=== PATIENT | female | born 1935 | race Caucasian/White ===

== ENCOUNTER 2016-05-15 18:30 | Observation (INO) ==
[2016-05-15] MEDS ORDERED: 0.9 % Sodium Chloride 1,000 ML IVC ONE (19:13)
[2016-05-15] MEDS ORDERED: Ipratropium/Albuterol Neb 3 ML IH ONE (19:13)
--- NOTE | 2016-05-15 19:17 | Emergency Department Note ---
Disposition Clinical Impression: Influenza, Pneumonia, Febrile illness Disposition: Admitted As Inpatient Condition: Good SOB HPI - General Chief Complaint: ED Shortness of Breath/Dyspnea Stated Complaint: SOB// coughing up blood Time Seen by Provider: 05/15/16 18:57 Source: patient, family Limitations: no limitations Nursing Notes Reviewed: Yes Vital Signs Reviewed: Yes - History of Present Illness 80-year-old female who states she is quite healthy except for a hiatal hernia presents to the emergency department with a chief complaint of 24 hours of cough with productive yellow sputum. She reports subjective fevers at home. She reports a history of pneumonia in the past but has been recently been well. She had her pneumonia shot a few years ago and she had her flu vaccine this year. She complains of some crampiness down her neck and into her shoulders. She denies any stiffness of the neck. She is fully immunized. She complains of mild headache. Denies any photophobia, nausea or vomiting. Denies any abdominal pain. Denies any chest pain. She has had a decreased appetite over the last day. - Related Data Home Medications Medication Instructions Recorded Confirmed Levothyroxine [Synthroid] 112 mcg PO DAILY 04/12/16 05/15/16 Naproxen Sodium [Aleve] 220 mg PO Q12H PRN 04/12/16 05/15/16 Amoxicillin [Amoxil] 500 mg PO BID 05/15/16 05/15/16 Omeprazole [PriLOSEC] 20 mg PO DAILY 05/15/16 05/15/16 Allergies Allergy/AdvReac Type Severity Reaction Status Date / Time No Known Allergies Allergy Verified 04/12/16 09:21 All systems ED: reviewed and negative except as stated. Constitutional: Reports: fever, chills Cardiovascular: Denies: chest pain Respiratory: Reports: cough, dyspnea Gastrointestinal: Denies: abdominal pain, nausea, vomiting Musculoskeletal: Denies: joint swelling Integumentary: Denies: rash Neurological: Reports: headache. Denies: weakness, numbness Past Medical History - Past Medical History Medical history: Reports: arthritis, thyroid disease, TIA, other Surgical history: Reports: orthopedic, other, thyroidectomy, other Psychiatric history: Reports: no psych history - Social History Smoking Status: Never smoker Smokeless Tobacco Status: No Alcohol use: Reports: none Drug use: Reports: none Physical Exam General: Patient is a well-appearing female, resting in bed, she is alert and oriented 3 and talkative Cardiovascular: Regular rate and rhythm. S1, S2. No murmurs, rubs or gallops. Respiratory: Coarse breath sounds especially in the left lobe with end expiratory wheezing. Coughing on examination bring up thick yellow sputum. No respiratory distress dressed. Normal respiratory rate. Abdomen: Soft, nontender. Eyes: No conjunctival exudate or injection, conjunctiva clear HENT: No oral mucosal lesions. Moist mucous membranes Neuro: Alert and oriented 3 Musculoskeletal: No joint tenderness or swelling. No lower extremity swelling, no calf tenderness. Skin: No lesions. No diaphoresis. Normal turgor. Normal color Psych: Appropriate - General Limitations: no limitations General appearance: alert, in no apparent distress Course Course Narrative: Elderly female presents with cough and dyspnea. In the room she is coughing up thick yellow sputum. She has a fever at 100.9. At rest she is 90% on room air requiring supplemental oxygen. No history of lung disease or need for oxygen. She is influenza A positive. She was started on Tamiflu because her symptoms have been less than 24 hours. Patient is elderly and lives at home with her elderly . She is so generally weak she cannot even get up out of bed to use the restroom. She is requiring supplemental oxygen and clinically with the fever, thick sputum she may have a developing pneumonia. She was also started on antibiotics to cover for community-acquired infections. Plan to admit to the hospital for further management. Vital Signs Temperature 100.9 F H 05/15/16 18:32 Pulse Rate 96 05/15/16 18:32 Respiratory Rate 18 05/15/16 18:32 Blood Pressure 170/87 05/15/16 18:32 O2 Sat by Pulse Oximetry 95 05/15/16 18:32 Temperature 100.9 F H 05/15/16 18:32 Pulse Rate 96 05/15/16 18:32 Respiratory Rate 20 05/15/16 19:46 Blood Pressure 170/87 05/15/16 18:32 O2 Sat by Pulse Oximetry 96 05/15/16 19:46 Oxygen Delivery Oxygen Delivery Room Air Shortness of Breath/Dyspnea - Lab Data Result diagrams: 05/15/16 19:21 05/15/16 19:21 Lab Results 05/15/16 05/15/16 Range/Units 19:21 19:21 WBC 5.0 (4.3-11.1) K/mcL RBC 4.21 (3.82-4.97) M/mcL Hgb 12.8 (11.5-15.4) g/dL Hct 38.3 (35.3-44.9) % MCV 91.0 (83.0-100.0) fL MCH 30.4 (28.0-33.3) pg MCHC 33.4 (31.6-35.5) g/dL RDW 13.1 (11.5-14.5) % Plt Count 166 (140-400) K/mcL MPV 10.7 (9.4-12.4) fL Immature Gran % 0.4 (0-4) % Seg Neutrophils % 75.6 % Lymphocytes % 12.1 % Monocytes % 10.9 % Eosinophils % 0.4 % Basophils % 0.6 % Neutrophils # 3.8 (1.6-8.9) K/mcL Lymphocytes # 0.6 (0.6-4.6) K/mcL Monocytes # 0.5 (0.0-1.3) K/mcL Eosinophils # 0.0 (0.0-0.6) K/mcL Basophils # 0.0 (0.0-0.2) K/mcL Sodium 135 L (136-145) mEq/L Potassium 3.7 (3.5-4.5) mEq/L Chloride 101 (98-109) mEq/L Carbon Dioxide 24 (19-29) mEq/L BUN 10 (7-20) mg/dL Creatinine 0.74 (0.57-1.11) mg/dL Est GFR ( Amer) > 60 (> 60) Est GFR (Non-Af Amer) > 60 (> 60) BUN/Creatinine Ratio 14 (6-26) Glucose 104 H (70-99) mg/dL Calculated Osmolality 279 L (280-300) Calcium 8.7 (8.6-10.8) mg/dL - EKG Data EKG results narrative: EKG shows a sinus rhythm with a rate of 82 bpm. The EKG reads as atrial fibrillation but after "examination in comparison to previous it looks like she has a P wave with a first-degree heart block. She has a right bundle branch block which is old compared to 03/22/2016. Mild ST depression in the lateral leads.
--- NOTE | 2016-05-15 19:26 | Emergency Department Note ---
START Narrative - START START: I examined this patient and my medical decision-making was reviewed with the POSTING CLERK/PA/Advanced Practice Nurse/Resident Physician. I agree with the documented findings, disposition and treatment plan as described except to the extent set forth below. ED attending note: Patient seen with emergency medicine resident Dr Cano. We independently evaluated the patient. We independently had [id number] contact with the patient. Please see a copy of his note for details of the history and physical, evaluation, management and disposition of this emergency Department patient. Briefly: 80-year-old female nonsmoker several days of cough and mild shortness of breath and fever. She is febrile here with some rhonchi. Cough sputum up during the exam which was yellow. Patient had x-ray and lab tests. Clinical impression is pneumonia. Disposition pending. Patient stable.
[2016-05-15 19:37] LABS: Basophils % 0.6 %; Eosinophils % 0.4 %; Hematocrit 38.3 % (35.3-44.9); Hemoglobin 12.8 g/dL (11.5-15.4); Immature Granulocytes % 0.4 % (0-4); Lymphocytes # 0.6 K/mcL (0.6-4.6); Lymphocytes % 12.1 %; Mean Corpuscular HGB Conc 33.4 g/dL (31.6-35.5); Mean Corpuscular Hemoglobin 30.4 pg (28.0-33.3); Mean Platelet Volume 10.7 fL (9.4-12.4); Monocytes # 0.5 K/mcL (0.0-1.3); Monocytes % 10.9 %; Neutrophils # 3.8 K/mcL (1.6-8.9); Platelet Count 166 K/mcL (140-400); Red Blood Count 4.21 M/mcL (3.82-4.97); Red Cell Distribution Width 13.1 % (11.5-14.5); Segmented Neutrophils % 75.6 %
[2016-05-15 19:38] LABS: BUN/Creatinine Ratio 14 (6-26); Blood Urea Nitrogen 10 mg/dL (7-20); Calcium 8.7 mg/dL (8.6-10.8); Carbon Dioxide 24 mEq/L (19-29); Chloride 101 mEq/L (98-109); Glucose 104 mg/dL (70-99); Osmolality,Calculated 279 (280-300); Potassium 3.7 mEq/L (3.5-4.5); Sodium 135 mEq/L (136-145); eGFR For African Americans > 60 (> 60); eGFR For Non-African Americans > 60 (> 60)
[2016-05-15] MEDS ORDERED: levoFLOXacin 500 MG TABLET PO ONE (20:22)
[2016-05-15] MEDS ORDERED: Ketorolac 30 MG/ML VIAL IVP ONE (20:46)
[2016-05-15] MEDS ORDERED: Ketorolac 30 MG/ML VIAL IVP PRN (23:28)
[2016-05-15] MEDS ORDERED: *HR* HYDROcodone/Acet 5/325 mg TABLET PO PRN (23:28)
[2016-05-15] MEDS ORDERED: Ondansetron ODT 4 MG TAB.RAPDIS SL PRN (23:28)
[2016-05-15] MEDS ORDERED: Naloxone 0.4 MG/ML INJ IVP PRN (23:28)
[2016-05-15] MEDS ORDERED: Ipratropium/Albuterol Neb 3 ML IH PRN (23:31)
--- NOTE | 2016-05-15 23:42 | Internal Med History&Physical ---
<Kym Vasquez - Last Filed: 05/16/16 00:01> Date of Encounter: 05/16/16 Time of Encounter: 23:33 Assessment and Plan (1) Influenza A Current visit: Yes Status: Acute Patient reports classic flu symptoms starting less than 48 hours ago. Will treat with tamiful and supportive care. 1. Tamiful 75mg PO BID x 5 days 2. Monitor O2 saturation. Supplemental O2 as needed 3. Fluids - normal saline at 100mls/hr 4. Medications of nausea/vomiting, body aches 5. Tylenol for elevated temperatures (2) Pneumonia Current visit: Yes Status: Acute CXR showed no acute infiltrate however patient has temperature, yellow/green/ bloody sputum with decreased air movement on exam. Concern for possible pneumonia is high. Patient has no recent hospitalization or exposure. Will treat for for community acquired pneumonia and provide supportive care. 1. Levaquin 750mg PO QD 2. Duonebs every 4 hours as needed 3. Sputum culture 4. Supplemental oxygen as needed Qualifiers: Pneumonia type: due to unspecified organism Laterality: unspecified laterality Lung location: unspecified part of lung Qualified Code(s): J18.9 - Pneumonia, unspecified organism (3) DVT prophylaxis Current visit: Yes Status: Acute Heparin 5,000 Q8H and SCD for DVT prophylaxis. Internal Medicine - H&P: HPI Admitted From: Emergency Dept Plans for Post Hospital Care: Home History of present illness: Ms. 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 Patient reports that 2 days ago she developed a sore throat. She called her family doctor and was given a prescription for amoxicillin. Then for the last day she has had a cough productive of yellow and blood tinged sputum. Patient reports chest pain with coughing and feeling short of breath. She reports feeling very weak and unable to get out of bed today. She reports associated chills, headache, nausea, constipation and diffuse joint and body aches. She denies changes in vision, runny nose, nasal congestion, abdominal pain, vomiting, diarrhea, or change in bladder function. Patient reports that her grandson has been sick. She received a pneumonia shot a few years ago and got her flu shot this year. In the ED, patient was found to have a temperature of 100.9 F, HR 70s-90s. Respiratory rate appropriate with O2 saturation 90% on room air. Labs were largely within normal limits. Found to be Influenza A positive. CXR showed low lung volumes but no acute process. She was given a dose of tamiflu and levaquin. On exam, patient is awake and alert, answer questions appropriately. Throat is not erythematous and no excudates are noted. Heart is regular rate and rhythm. Lungs with diminished breath sounds on the right and coughing on exam - no wheezing or rhonchi. Abdomen soft, nontender. No pedal edema. Past Med Surg Social Fam HX - Past Medical History Medical history: arthritis, thyroid disease, TIA, other Psychiatric history: no psych history - Past Surgical History Surgical History: orthopedic, other, thyroidectomy, other - Social History Smoking Status: Never smoker Smokeless Tobacco Status: No Alcohol use: none Drug use: none - Family History Father Age at : 45 Hx Family GI Disorders: Yes Mother Hx Family Respiratory Disorders: Yes (Emphysema) Internal Medicine - H&P: Meds Levothyroxine [Synthroid] 112 mcg PO DAILY 04/12/16 [History] Naproxen Sodium [Aleve] 220 mg PO Q12H PRN 04/12/16 [History] Amoxicillin [Amoxil] 500 mg PO BID 05/15/16 [History] Omeprazole [PriLOSEC] 20 mg PO DAILY 05/15/16 [History] Allergies No Known Allergies Allergy (Verified 04/12/16 09:21) All Systems PM: A 10-system review of systems was performed and is negative for pertinent findings except as documented above in the HPI. - Constitutional Constitutional: chills, fatigue, fever(s), lethargy, weakness - EENT Eyes: no change in vision Ears: no decreased hearing, no ear pain Nose, mouth and throat: neck pain, sore throat, no nasal congestion, no nasal discharge, no post-nasal drip, no sinus pain, no sinus pressure - Cardiovascular Cardiovascular ROS IM: dyspnea, no chest pain, no edema, no irregular heart rhythm, no palpitations - Respiratory Respiratory: cough, dyspnea, dyspnea on exertion, chest congestion, pain with cough - Gastrointestinal Gastrointestinal: constipation, nausea, no abdominal pain, no diarrhea, no vomiting - Genitourinary Genitourinary: no change in urinary stream, no dysuria - Musculoskeletal Musculoskeletal ROS IM: myalgias - Neurological Neurological ROS: headache(s), no confusion, no dizziness - Constitutional Vitals: Temp Pulse Resp BP Pulse Ox 99.1 F 74 16 124/68 97 05/15/16 22:49 05/15/16 22:49 05/15/16 22:49 05/15/16 22:49 05/15/16 22:49 General appearance: Present: A&O X 3, pleasant, no acute distress, answers questions appropriately - Head Head exam: Present: atraumatic, normal inspection, normocephalic - Eye Eye exam: Present: EOMI, normal appearance, PERRL - ENT ENT exam: Present: mucous membranes moist, normal exam - Respiratory Respiratory exam: Present: decreased breath sounds. Absent: rales, rhonchi, wheezes - Cardiovascular Cardiovascular exam: Present: RRR - GI/Abdominal GI/Abdominal exam: Present: soft. Absent: guarding, rebound, rigid, tenderness - Extremities Exam Extremities exam: Present: normal inspection. Absent: pedal edema - Neurological Exam Neurological exam: Present: alert, CN II-XII intact, oriented X3 Internal Med - H&P Results - Labs CBC & Chem 7: 05/15/16 19:21 05/15/16 19:21 <Davon Hammonds - Last Filed: 05/16/16 02:21> Date of Encounter: 05/15/16 Internal Medicine - H&P: HPI History of present illness: Ms. Corrales is a 80 year old female All Systems PM: A 10-system review of systems was performed and is negative for pertinent findings except as documented above in the HPI. - Constitutional Vitals: Temp Pulse Resp BP Pulse Ox 99.1 F 74 16 124/68 97 05/15/16 22:49 05/15/16 22:49 05/15/16 22:49 05/15/16 22:49 05/15/16 22:49 Internal Med - H&P Results - Labs CBC & Chem 7: 05/15/16 19:21 05/15/16 19:21 - Attending Attestation I examined this patient and my medical decision-making was reviewed with the MOTION GRAPHICS DESIGNER/PA/Advanced Practice Nurse/Resident Physician. I agree with the documented findings, disposition and treatment plan as described except to the extent set forth below. 80 Y/F with hypothyroidism, presents with influenza A, cough with yellow sputum. Poor oral intake. O/E: Temp: 100.9F. Left basal crackles present. CXR reported no acute infiltrate. A/P: continue Tamiflu, levofloxacin. Sputum cultures; check CRP. IV fluids.
[2016-05-16] MEDS: 0.9 % Sodium Chloride 1,000 ML IVC SCH ×3 (01:19→20:26)
[2016-05-16 04:21] LABS: Hematocrit 34.4 % (35.3-44.9); Hemoglobin 11.5 g/dL (11.5-15.4); Mean Corpuscular HGB Conc 33.4 g/dL (31.6-35.5); Mean Corpuscular Hemoglobin 30.7 pg (28.0-33.3); Mean Corpuscular Volume 91.7 fL (83.0-100.0); Platelet Count 140 K/mcL (140-400); Red Blood Count 3.75 M/mcL (3.82-4.97); Red Cell Distribution Width 13.2 % (11.5-14.5)
[2016-05-16 04:37] LABS: BUN/Creatinine Ratio 15 (6-26); Blood Urea Nitrogen 11 mg/dL (7-20); Calcium 8.1 mg/dL (8.6-10.8); Carbon Dioxide 22 mEq/L (19-29); Chloride 106 mEq/L (98-109); Glucose 87 mg/dL (70-99); Magnesium 1.6 mg/dL (1.6-2.6); Osmolality,Calculated 283 (280-300); Phosphorous 4.1 mg/dL (2.3-4.7); Potassium 3.4 mEq/L (3.5-4.5); Sodium 137 mEq/L (136-145); eGFR For African Americans > 60 (> 60); eGFR For Non-African Americans > 60 (> 60)
[2016-05-16 04:55] LABS: Basophils # 0.1 K/mcL (0.0-0.2); Lymphocytes # 0.9 K/mcL (0.6-4.6); Monocytes # 0.1 K/mcL (0.0-1.3); Neutrophils # 2.5 K/mcL (1.6-8.9)
[2016-05-16 04:56] LABS: Large Platelets Present (Not Present); Platelet Estimate Normal (Normal); Reactive Lymphocytes Present (Not Present)
[2016-05-16] MEDS: *HR* Heparin 5,000 UNIT/ML VIAL SQ SCH ×3 (06:45→23:10)
[2016-05-16] MEDS ORDERED: *HR* Heparin 5,000 UNIT/ML VIAL SQ SCH (07:00)
[2016-05-16] MEDS: levoFLOXacin 500 MG TABLET PO SCH (08:36)
[2016-05-16] MEDS: Lactobacillus 1 EACH CAP.SPRINK PO SCH ×2 (08:36→20:26)
--- NOTE | 2016-05-16 13:10 | Internal Med Progress Note ---
Date of Encounter: 05/16/16 Time of Encounter: 09:00 - Assessment and plan (1) Influenza A Current Visit: Yes Status: Acute Assessment and plan: Continue Tamiflu, IV fluids, and supportive care. Patient continues to be weak and dizzy and lightheaded with ambulation. She denies nausea but states she does not have an appetite. She lives with her and appears younger than stated age and does not require a cane or a walker to ambulate at home. No indication for OT or PT consultations at this time, we will continue to monitor. Possible discharge tomorrow pending clinical outcomes. Of note, patient continues to be weak tomorrow, we will bring OT and PT on board at that time. (2) Pneumonia Current Visit: Yes Status: Acute Assessment and plan: Chest x-ray unremarkable however patient with productive cough, fever. Treating for possible community-acquired pneumonia of unknown bacterial etiology with Levaquin. Sputum culture pending. ITS Impressions Chest X-Ray 05/15/16 19:14 IMPRESSION: Low lung volumes. No acute cardiopulmonary disease. D/ / Carter Garcia MD / Carter Garcia MD Interpreting Provider: Carter Garcia MD Qualifiers: Pneumonia type: due to unspecified organism Laterality: unspecified laterality Lung location: unspecified part of lung Qualified Code(s): J18.9 - Pneumonia, unspecified organism (3) Hypothyroidism associated with surgical procedure Current Visit: Yes Status: Chronic Assessment and plan: TSH normal (4) DVT prophylaxis Current Visit: Yes Status: Acute Assessment and plan: Subcutaneous heparin - Subjective Interval history: Patient seen and examined. On examination, patient is sitting upright in bed conversing with her . Patient stating she still has a sore throat and feels as if phlegm is stuck in her throat. She states that she is breathing very shallow. She denies nausea but states she does not have an appetite at this point. She also states that she feels weak, dizzy, and lightheaded. - Constitutional Vitals: Temp Pulse Resp BP Pulse Ox 99.1 F 73 16 167/90 94 L 05/16/16 11:50 05/16/16 11:50 05/16/16 11:50 05/16/16 11:50 05/16/16 11:50 General appearance: Present: A&O X 3, pleasant, no acute distress, answers questions appropriately - Head Head exam: Present: atraumatic, normocephalic - Eye Eye exam: Present: PERRL, conjuntiva pink, sclera anicteric Pupils: Present: PERRL - Neck Neck exam general surgery: Present: supple, trachea midline. Absent: lymphadenopathy - Respiratory Respiratory exam: Present: decreased breath sounds. Absent: accessory muscle use, rales, respiratory distress, rhonchi, wheezes - Cardiovascular Cardiovascular exam: Present: RRR, +S1, +S2. Absent: diastolic murmur, gallop, rubs, systolic murmur - GI/Abdominal GI/Abdominal exam: Present: normal bowel sounds, soft, no peritoneal signs. Absent: distended, tenderness - Extremities Exam Extremities exam: Present: warm, radial pulses palpable and symetrical. Absent : calf tenderness, cyanotic, pedal edema - Neurological Exam Neurological exam: Present: alert, CN II-XII intact, oriented X3, no focal deficits, strengths equal and symetr throughout. Absent: pronater drift, facial droop, speech deficit - Skin Skin exam: Present: dry, intact, pallor, warm Internal Medicine: Result - Labs CBC & Chem 7: 05/16/16 04:00 05/16/16 04:00 Labs: Short CBC 05/16/16 Range/Units 04:00 WBC 3.6 L (4.3-11.1) K/mcL Hgb 11.5 (11.5-15.4) g/dL Hct 34.4 L (35.3-44.9) % Plt Count 140 (140-400) K/mcL Neutrophils # 2.5 (1.6-8.9) K/mcL BMP 05/16/16 04:00 Sodium 137 Potassium 3.4 L Chloride 106 Carbon Dioxide 22 BUN 11 Creatinine 0.72 Glucose 87 Calcium 8.1 L Consult Discharge Plan - Plan Referrals: Salome Sidhu DO [Primary Care Provider] -
[2016-05-16] MEDS: Acetaminophen 325 MG TABLET PO PRN ×2 (13:43→23:09)
[2016-05-17 05:54] LABS: Basophils % 0.5 %; Eosinophils % 1.1 %; Hematocrit 36.7 % (35.3-44.9); Hemoglobin 12.2 g/dL (11.5-15.4); Immature Granulocytes % 0.3 % (0-4); Immature Platelets 4.7 % (1.1-6.1); Lymphocytes # 1.4 K/mcL (0.6-4.6); Lymphocytes % 37.6 %; Mean Corpuscular HGB Conc 33.2 g/dL (31.6-35.5); Mean Corpuscular Hemoglobin 30.7 pg (28.0-33.3); Mean Corpuscular Volume 92.4 fL (83.0-100.0); Monocytes # 0.4 K/mcL (0.0-1.3); Monocytes % 11.4 %; Neutrophils # 1.8 K/mcL (1.6-8.9); Platelet Count 165 K/mcL (140-400); Red Blood Count 3.97 M/mcL (3.82-4.97); Red Cell Distribution Width 13.2 % (11.5-14.5); Segmented Neutrophils % 49.1 %
[2016-05-17] MEDS: *HR* Heparin 5,000 UNIT/ML VIAL SQ SCH (06:12)
[2016-05-17] MEDS: 0.9 % Sodium Chloride 1,000 ML IVC SCH (06:12)
[2016-05-17 06:47] VITALS: BP 147/84
[2016-05-17 06:47] LABS: BUN/Creatinine Ratio 11 (6-26); Blood Urea Nitrogen 8 mg/dL (7-20); Calcium 8.5 mg/dL (8.6-10.8); Carbon Dioxide 22 mEq/L (19-29); Chloride 108 mEq/L (98-109); Glucose 89 mg/dL (70-99); Magnesium 1.7 mg/dL (1.6-2.6); Osmolality,Calculated 288 (280-300); Potassium 3.5 mEq/L (3.5-4.5); Sodium 140 mEq/L (136-145); eGFR For African Americans > 60 (> 60); eGFR For Non-African Americans > 60 (> 60)
[2016-05-17] MEDS: Lactobacillus 1 EACH CAP.SPRINK PO SCH (07:57)
[2016-05-17] MEDS: levoFLOXacin 500 MG TABLET PO SCH (07:58)
--- NOTE | 2016-05-17 11:32 | Discharge Summary ---
Date of Encounter: 05/17/16 Time of Encounter: 08:30 - Discharge Diagnosis (1) Febrile illness Priority: Secondary Status: Acute (2) Influenza A Priority: Primary Status: Acute (3) Pneumonia Priority: Primary Status: Acute Qualifiers: Pneumonia type: due to unspecified organism Laterality: unspecified laterality Lung location: unspecified part of lung Qualified Code(s): J18.9 - Pneumonia, unspecified organism - Discharge Medications Prescriptions: Lactobacillus [Culturelle] 1 each PO BID #20 cap.sprink Levofloxacin [Levaquin] 500 mg PO DAILY #5 tablet Oseltamivir [Tamiflu] 75 mg PO BID #10 capsule Home Medications: Levothyroxine [Synthroid] 112 mcg PO DAILY 04/12/16 [History] Amoxicillin [Amoxil] 500 mg PO BID 05/15/16 [History] Omeprazole [PriLOSEC] 20 mg PO DAILY 05/15/16 [History] Lactobacillus [Culturelle] 1 each PO BID #20 cap.sprink 05/17/16 [Rx] Levofloxacin [Levaquin] 500 mg PO DAILY #5 tablet 05/17/16 [Rx] Oseltamivir [Tamiflu] 75 mg PO BID #10 capsule 05/17/16 [Rx] Allergies/Adverse Reactions: Allergies No Known Allergies Allergy (Verified 04/12/16 09:21) Date of admission: 05/15/16 21:24 Primary care physician: Markel Amor Discharging clinician: Gerald Lopez - Patient Status Disposition: Home, Self-Care Condition: Good Overall status at discharge: patient is progressing back to baseline - Discharge Instructions Instructions: Influenza (DC), Pneumonia (DC) Follow Up With: Salome Sidhu DO [Primary Care Provider] - 05/21/16 1:45 pm - Diet and Activity Activity: resume usual activities as tolerated Diet: low salt diet Hospital course: Ms. 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 Patient reports that 2 days ago she developed a sore throat. She called her family doctor and was given a prescription for amoxicillin. Then for the last day she has had productive cough with yellow and blood tinged sputum. Patient reports chest pain with coughing and feeling short of breath. She reports feeling very weak and unable to get out of bed today, this was associated chills, headache, nausea, constipation and diffuse joint and body aches. In the ED, patient was found to have a temperature of 100.9 F, HR 70s-90s. Respiratory rate appropriate with O2 saturation 90% on room air. Labs were within normal limits. Found to be Influenza A positive. CXR showed low lung volumes but no acute process. With her severity of symptom and comorbidity ,She was given a dose of tamiflu and levaquin. Patient had marked improvement. Today patient is feeling almost back to her normal. Patient tolerated all her meals. Denies any nausea or vomiting. Patient denies any shortness of breath. Productive cough is clearing up. Patient denies any fever or chills - Time Spent with Patient Total time spent providing and/or coordinating discharge services: Greater than 30 minutes - Constitutional Vitals: Temp Pulse Resp BP Pulse Ox 98.0 F 62 17 147/84 95 05/17/16 06:46 05/17/16 06:46 05/17/16 06:46 05/17/16 06:46 05/17/16 06:46 General appearance: Present: A&O X 3, pleasant, no acute distress, answers questions appropriately
--- NOTE | 2016-05-17 12:45 | Electrocardiograph Report ---
[address] [place], [place] [address] Test Date: 2016-05-15 Pat Name: Kerline Corrales Department: 104 Room: 3B38 Gender: F Road Worker: : 1935 Requested By: Skip Cano Order Number: [id number] Reading MD: Brannon Wilkinson MD Measurements Intervals [place] Rate: 82 P: [place]: 0 QRS: 178 QRSD: 147 T: 154 QT: 386 QTc: 424 Interpretive Statements ATRIAL FIBRILLATION MARKED RIGHT AXIS DEVIATION RIGHT BUNDLE BRANCH BLOCK Electronically Signed On 05-17-2016 12:43:36 EST by Brannon Wilkinson MD
== END 2016-05-17 12:12 | disposition home or self-care (01) ==
LOC: 3BNU 18:30 → EMEROO 18:30 → 3BNU 22:27
PROVIDERS: ADMIT Internal Medicine; ATTEND Nurse Practitioner Family

== ENCOUNTER 2018-02-04 14:46 | Inpatient (IN) ==
--- NOTE | 2018-02-04 15:22 | Emergency Department Note ---
Disposition Clinical Impression: Heart block, Bradycardia, Dyspnea on exertion Disposition: Admitted As Inpatient Condition: Good Time of Disposition: 16:25 General Adult HPI - General Chief complaint: ED Arrhythmia/Palpitations Stated complaint: dizzy, vision changes, ELZBIETA Time Seen by Provider: 02/04/18 15:00 Source: patient Limitations: no limitations Nursing Notes Reviewed: Yes Vital Signs Reviewed: Yes - History of Present Illness HPI Narrative: 82 year old female presents for shortness of breath and low heart rate. Patient states that she's been having difficulty breathing with walking for 1 week. To day she took her blood pressure and it was real high at 190/86 and then went real low to 140/36. Heart rate was 40 then it went to 36. Patient called her PCP office and patient was told to go to ED. Patient was informed by PCP office that her heart rate is usually 65. Patient reports her arms feels heavy with the shortness of breath. Also states that occasionally her eyes see double then goes back to normal. This has been occuring for last 1.5 month. Denies fever, chest pain, abdominal pain, nausea/vomiting, lightheadedness/dizziness, syncope, fall, loss of appetite, muscle weakness, numbness/tingling. Patient reports medical history of arthritis, thyroid disease, and hiatal hernia. Denies history of heart disease, arrhythmia, or HTN. Reports taking meds for arthritis and thyroid only. Pain Scale: 0 - Related Data Home Medications Medication Instructions Recorded Confirmed Levothyroxine [Synthroid] 112 mcg PO DAILY 04/12/16 02/04/18 Omeprazole [PriLOSEC] 20 mg PO DAILY 05/15/16 02/04/18 Meloxicam 7.5 mg PO DAILY 02/04/18 02/04/18 Allergies Allergy/AdvReac Type Severity Reaction Status Date / Time No Known Allergies Allergy Verified 02/04/18 14:53 Constitutional: Denies: fever, chills Eyes: Denies: eye pain, eye discharge ENT ED: Denies: ear pain, throat pain Cardiovascular: Denies: chest pain, palpitations Respiratory: Denies: cough, dyspnea Gastrointestinal: Denies: abdominal pain, nausea Genitourinary: Denies: urgency, dysuria Musculoskeletal: Denies: back pain, neck pain Integumentary: Denies: rash, abrasion Neurological: Reports: weakness. Denies: headache Past Medical History - Past Medical History Medical history: Reports: arthritis, hypertension, thyroid disease, TIA, other Surgical history: Reports: orthopedic, other, thyroidectomy, other Psychiatric history: Reports: no psych history - Social History Smoking Status: Former smoker Smokeless Tobacco Status: No Alcohol use: Reports: none Drug use: Reports: none Physical Exam - General Limitations: no limitations General appearance: alert, in no apparent distress - Head Head exam: atraumatic, normocephalic - Eye Eye exam: Present: PERRL, EOMI - ENT ENT exam: normal oropharynx, mucous membranes moist - Neck Neck exam: Present: normal inspection - Chest Chest inspection: Present: normal inspection, symmetric chest wall rise - Respiratory Respiratory exam: Present: normal lung sounds bilaterally. Absent: respiratory distress - Cardiovascular Cardiovascular exam: Present: bradycardia, irregular rhythm - Abdominal Exam Abdominal exam: Present: soft, Non-Tender, normal bowel sounds. Absent: distention, guarding, rebound, rigidity - Extremities Exam Extremities exam: Present: normal inspection. Absent: tenderness, pedal edema, joint swelling - Neurological Exam Neurological exam: Present: alert, oriented X3, CN II-XII intact. Absent: motor sensory deficit - Psychiatric Psychiatric exam: Present: normal affect, normal mood - Skin Skin exam: Present: warm, dry, intact, normal color Course Course Narrative: 82 year old female with history of hypothyroid presents for shortness of breath and heart rate in the 30's. Patient is alert and oriented. Patient is bradycardic at 38 and tachypneic at 24. Blood pressure is 170/87. Tele showed A- fib. On exam, heart was bradycardic, no murmurs. Lungs are clear. No focal deficits. Will check labwork and CXR. - Reevaluation(s) Reevaluation #1: CBC and coag studies are unremarkable. BMP is unremarkable. TSH is decreased at 0.067. CXR shows cardiomegaly without overt failure. Admitted to hospitalist with cardio consult. Time: 16:24 Vital Signs Temperature 97.4 F L 02/04/18 14:52 Pulse Rate 38 02/04/18 14:52 Respiratory Rate 24 02/04/18 14:52 O2 Sat by Pulse Oximetry 98 02/04/18 14:52 Temperature 97.4 F L 02/04/18 14:58 Pulse Rate 38 02/04/18 14:58 Respiratory Rate 24 02/04/18 14:58 Blood Pressure 170/87 02/04/18 14:58 O2 Sat by Pulse Oximetry 98 02/04/18 14:58 Oxygen Delivery Oxygen Delivery Room Air Medical Decision Making - MDM Narrative Medical decision making narrative: Chest X-Ray 02/04/18 15:16 IMPRESSION: 1. Cardiomegaly without overt failure. 2. Hiatal hernia. D/ / Ric Adrian MD / Ric Adrian MD Interpreting Provider: Ric Adrian MD - Medical Records Medical records reviewed: Yes I reviewed the patient's medical records. - Lab Data Lab results reviewed: Yes I reviewed the patient's lab results. Result diagrams: 02/04/18 15:07 02/04/18 15:07 - Radiology Data Radiology results reviewed: Yes I reviewed the patient's radiology results. - EKG Data EKG #1 EKG attestation: Yes I reviewed and interpreted this EKG. EKG results narrative: EKG 02/04/18 15:04. Sinus rhythm. Heart rate 36. Second degree heart block type 2, possible 3rd degree. No prior EKG for comparison. Repeat EKG 15:27. Sinus rhythm. Heart rate 45. First degree heart block.
[2018-02-04 15:27] LABS: Basophils % 0.7 %; Eosinophils # 0.1 K/mcL (0.0-0.6); Eosinophils % 2.2 %; Hematocrit 41.2 % (35.3-44.9); Hemoglobin 13.6 g/dL (11.5-15.4); Immature Granulocytes % 0.2 % (0-4); Lymphocytes # 2.4 K/mcL (0.6-4.6); Lymphocytes % 40.3 %; Mean Corpuscular Hemoglobin 30.4 pg (28.0-33.3); Mean Platelet Volume 11.8 fL (9.4-12.4); Monocytes # 0.5 K/mcL (0.0-1.3); Monocytes % 9.2 %; Neutrophils # 2.8 K/mcL (1.6-8.9); Platelet Count 194 K/mcL (140-400); Red Blood Count 4.48 M/mcL (3.82-4.97); Red Cell Distribution Width 13.2 % (11.5-14.5); Segmented Neutrophils % 47.4 %
--- NOTE | 2018-02-04 15:32 | Emergency Department Note ---
Disposition Clinical Impression: Heart block, Bradycardia, Dyspnea on exertion Disposition: Admitted As Inpatient Condition: Good Referrals: Salome Sidhu DO [Primary Care Provider] - Forms: ED Satisfaction Letter General Adult HPI - General Chief complaint: ED Arrhythmia/Palpitations Stated complaint: dizzy, vision changes, ELZBIETA Time Seen by Provider: 02/04/18 15:00 Source: patient Limitations: no limitations - History of Present Illness Pain Scale: 0 - Related Data Home Medications Medication Instructions Recorded Confirmed Levothyroxine [Synthroid] 112 mcg PO DAILY 04/12/16 05/15/16 Amoxicillin [Amoxil] 500 mg PO BID 05/15/16 05/15/16 Omeprazole [PriLOSEC] 20 mg PO DAILY 05/15/16 05/15/16 Previous Rx's Medication Instructions Recorded Lactobacillus [Culturelle] 1 each PO BID #20 cap.sprink 05/17/16 Oseltamivir [Tamiflu] 75 mg PO BID #10 capsule 05/17/16 levoFLOXacin [Levaquin] 500 mg PO DAILY #5 tablet 05/17/16 Allergies Allergy/AdvReac Type Severity Reaction Status Date / Time No Known Allergies Allergy Verified 02/04/18 14:53 Constitutional: Denies: fever, chills Eyes: Denies: eye pain, eye discharge ENT ED: Denies: ear pain, throat pain Cardiovascular: Denies: chest pain, palpitations Respiratory: Denies: cough, dyspnea Gastrointestinal: Denies: abdominal pain, nausea Genitourinary: Denies: urgency, dysuria Musculoskeletal: Denies: back pain, neck pain Integumentary: Denies: rash, abrasion Neurological: Reports: weakness. Denies: headache Past Medical History - Past Medical History Medical history: Reports: arthritis, hypertension, thyroid disease, TIA, other Surgical history: Reports: orthopedic, other, thyroidectomy, other Psychiatric history: Reports: no psych history - Social History Smoking Status: Former smoker Smokeless Tobacco Status: No Alcohol use: Reports: none Drug use: Reports: none Physical Exam - General Limitations: no limitations General appearance: alert, in no apparent distress Course Vital Signs Temperature 97.4 F L 02/04/18 14:52 Pulse Rate 38 02/04/18 14:52 Respiratory Rate 24 02/04/18 14:52 O2 Sat by Pulse Oximetry 98 02/04/18 14:52 Temperature 97.4 F L 02/04/18 14:58 Pulse Rate 44 02/04/18 15:51 Respiratory Rate 14 02/04/18 15:51 Blood Pressure 167/70 02/04/18 15:51 O2 Sat by Pulse Oximetry 97 02/04/18 15:51 Oxygen Delivery Oxygen Delivery Room Air Medical Decision Making - Lab Data Result diagrams: 02/04/18 15:07 02/04/18 15:07 Lab Results 02/04/18 02/04/18 02/04/18 Range/Units 15:07 15:07 15:07 WBC 5.9 (4.3-11.1) K/mcL RBC 4.48 (3.82-4.97) M/mcL Hgb 13.6 (11.5-15.4) g/dL Hct 41.2 (35.3-44.9) % MCV 92.0 (83.0-100.0) fL MCH 30.4 (28.0-33.3) pg MCHC 33.0 (31.6-35.5) g/dL RDW 13.2 (11.5-14.5) % Plt Count 194 (140-400) K/mcL MPV 11.8 (9.4-12.4) fL Immature Gran % 0.2 (0-4) % Seg Neutrophils % 47.4 % Lymphocytes % 40.3 % Monocytes % 9.2 % Eosinophils % 2.2 % Basophils % 0.7 % Neutrophils # 2.8 (1.6-8.9) K/mcL Lymphocytes # 2.4 (0.6-4.6) K/mcL Monocytes # 0.5 (0.0-1.3) K/mcL Eosinophils # 0.1 (0.0-0.6) K/mcL Basophils # 0.0 (0.0-0.2) K/mcL PT 14.1 H (9.4-12.1) Seconds INR 1.3 APTT 31.6 (26.0-36.0) Seconds Sodium 139 (136-145) mEq/L Potassium 3.8 (3.5-5.1) mEq/L Chloride 105 (98-107) mEq/L Carbon Dioxide 20 L (23-29) mEq/L BUN 9 (8-23) mg/dL Creatinine 0.79 (0.60-1.20) mg/dL Est GFR ( Amer) > 60 (> 60) Est GFR (Non-Af Amer) > 60 (> 60) BUN/Creatinine Ratio 11 (6-26) Glucose 115 H (70-105) mg/dL Calculated Osmolality 288 (280-300) Calcium 9.1 (8.6-10.3) mg/dL Magnesium 2.1 (1.6-2.6) mg/dL Troponin I < 0.03 (< 0.04) ng/mL TSH 0.067 L (0.340-5.600) mcIU/mL Attestation Statement - Attestation Attestation: I examined this patient and my medical decision-making was reviewed with the Resident Physician. I agree with the documented findings, disposition and treatment plan as described except to the extent set forth below. Patient presents to the ED with a chief complaint of double vision and dyspnea on exertion. Patient is felt bad for several days. She describes episodes w here she will just be seated in her vision or double. It resolves spontaneously. She is also having dyspnea when she walks short distances. She denies any cardiac history. She does have a history of arthritis for which she takes Mobic and her thyroid has been removed and she takes Synthroid. Denies any chest pain. Denies any history of cardiac stents or bypass surgery. On examination she is awake and alert pleasant and conversant. She is sitting up in bed in no acute distress. Heart slow but regular. Lungs diminished but clear. Abdomen soft. Plan. Her first EKG is concerning for a second degree heart block versus a third degree. She has since converted to a sinus bradycardia. She does have pacer pads at the bedside. Cardiac workup including a magnesium and TSH. We will discuss with cardiology and patient will be admitted. Workup completed. Labs reviewed. Admitted to medicine with cardiology consult.
[2018-02-04 15:34] LABS: INR 1.3; Prothrombin Time 14.1 Seconds (9.4-12.1)
[2018-02-04 15:36] LABS: Activated Partial Thrombo Time 31.6 Seconds (26.0-36.0)
[2018-02-04 15:44] LABS: Troponin I < 0.03 ng/mL (< 0.04)
[2018-02-04 15:52] LABS: BUN/Creatinine Ratio 11 (6-26); Blood Urea Nitrogen 9 mg/dL (8-23); Calcium 9.1 mg/dL (8.6-10.3); Carbon Dioxide 20 mEq/L (23-29); Chloride 105 mEq/L (98-107); Glucose 115 mg/dL (70-105); Magnesium 2.1 mg/dL (1.6-2.6); Osmolality,Calculated 288 (280-300); Potassium 3.8 mEq/L (3.5-5.1); Sodium 139 mEq/L (136-145); eGFR For Non-African Americans > 60 (> 60)
[2018-02-04 15:58] LABS: Thyroid Stimulating Hormone 0.067 mcIU/mL (0.340-5.600)
--- NOTE | 2018-02-04 17:08 | Internal Med History&Physical ---
Date of Encounter: 02/04/18 Time of Encounter: 17:04 Internal Medicine - H&P: HPI Chief complaint: dizziness Admitted From: Emergency Dept Plans for Post Hospital Care: Home History of present illness: Ms. Corrales is a 82 year old female Patient with history of arthritis, hypothyroidism had a prior thyroid ablation and on Synthroid replacement, also history of hypertension and TIA and obesity patient presented emergency room with about a week of dizziness and lightheadedness no syncope initial EKG shows a second-degree AV block rype 2 then change to sinus bradycardia heart rates in the 38 bpm blood pressure however is 170/87 patient also has exertional shortness of breath no chest pain no palpitation no prior cardiac event history cardiology has been consult and will see patient later on today patient is not on any heart medication she is only taking Synthroid and Mobic for arthritis Past Med Surg Social Fam HX - Past Medical History Medical history: arthritis, hypertension, thyroid disease, TIA, other Additional medical history: hernia Psychiatric history: no psych history - Past Surgical History Surgical History: orthopedic, other, thyroidectomy, other Additional surgical history: Bladder suspention - Social History Smoking Status: Former smoker Smokeless Tobacco Status: No Alcohol use: none Drug use: none - Family History Father Hx Family GI Disorders: Yes Mother Hx Family Respiratory Disorders: Yes (Emphysema) Internal Medicine - H&P: Meds Levothyroxine [Synthroid] 112 mcg PO DAILY 04/12/16 [History] Omeprazole [PriLOSEC] 20 mg PO DAILY 05/15/16 [History] Meloxicam 7.5 mg PO DAILY 02/04/18 [History] Allergy/AdvReac Type Severity Reaction Status Date / Time No Known Allergies Allergy Verified 02/04/18 14:53 ROS unobtainable: due to mental status All Systems PM: A 10-system review of systems was performed and is negative for pertinent findings except as documented above in the HPI. - Constitutional Vitals: Temp Pulse Resp BP Pulse Ox 97.4 F L 44 14 167/70 97 02/04/18 14:58 02/04/18 15:51 02/04/18 15:51 02/04/18 15:51 02/04/18 15:51 Exam: done - Head Head exam: Present: atraumatic, normocephalic - Neck Neck exam general surgery: Present: supple, trachea midline. Absent: lymphadeno alexandra - Respiratory Respiratory exam: Present: CTAB. Absent: accessory muscle use, rales, rhonchi, wheezes - Cardiovascular Cardiovascular exam: Present: bradycardia, RRR - GI/Abdominal GI/Abdominal exam: Present: normal bowel sounds, soft, no peritoneal signs. Absent: distended, tenderness - Extremities Exam Extremities exam: Present: warm, radial pulses palpable and symmetrical. Absent: calf tenderness, cyanotic, pedal edema Internal Med - H&P Results - Labs CBC & Chem 7: 02/04/18 15:07 02/04/18 15:07 Labs: Short CBC 02/04/18 Range/Units 15:07 WBC 5.9 (4.3-11.1) K/mcL Hgb 13.6 (11.5-15.4) g/dL Hct 41.2 (35.3-44.9) % Plt Count 194 (140-400) K/mcL Neutrophils # 2.8 (1.6-8.9) K/mcL BMP 02/04/18 15:07 Sodium 139 Potassium 3.8 Chloride 105 Carbon Dioxide 20 L BUN 9 Creatinine 0.79 Glucose 115 H Calcium 9.1 Cardiac Enzymes 02/04/18 Range/Units 15:07 Troponin I < 0.03 (< 0.04) ng/mL - Impressions ITS Impressions Chest X-Ray 02/04/18 15:16 IMPRESSION: 1. Cardiomegaly without overt failure. 2. Hiatal hernia. D/ / Ric Adrian MD / Ric Adrian MD Interpreting Provider: Ric Adrian MD - Assessment and plan (1) Hypothyroidism Current Visit: Yes Status: Acute Assessment and plan: TSH is low better which check free T4 and free T3 Qualifiers: Hypothyroidism type: unspecified Qualified Code(s): E03.9 - Hypothyroidism, unspecified (2) Bradycardia Current Visit: Yes Status: Acute Assessment and plan: Symptomatic bradycardia not on any heart medication patient will be seen by cardiology will need a permanent pacemaker (3) Dyspnea on exertion Current Visit: Yes Status: Acute Assessment and plan: Exertional shortness of breath likely due to bradycardia of possible angina equivalent with a check troponin (4) Heart block Current Visit: Yes Status: Acute Assessment and plan: Symptomatic second-degree AV block Krupa indication for permanent pacemaker elevated blood pressure is high 170/87 - Time Spent With Patient Total time spent is greater than 50% in coordination of care (as documented) at patient's floor/unit and/or counseling patient:
[2018-02-04] MEDS ORDERED: Naloxone 0.4 MG/ML INJ IVP PRN (17:11)
[2018-02-04 17:46] LABS: Triiodothyronine (T3) Free 3.51 pg/mL (2.50-3.90)
--- NOTE | 2018-02-04 18:35 | Cardiology Consult Note ---
Date of Encounter: 02/04/18 Time of Encounter: 18:20 Assessment and Plan (1) High-grade atrioventricular block Current Visit: Yes Status: Acute Electrolytes within normal limits. TSH is low.EKG shows sinus tachycardia with high-grade AV block and narrow complex escape rhythm. Patient is hemodynamically stable at this time. Mentating well and not in heart failure. We require permanent pacemaker placement. Meanwhile power heart and atropine to be placed at bedside. Obtain echocardiogram. Please call project director electronic data interchange specialist for transvenous pacemaker if patient's clinical status deteriorates (2) Hypertension Current Visit: Yes Status: Acute Treat only if systolic above 170 mmHg. Avoid AV mackenzie blocking agents Qualifiers: Hypertension type: essential hypertension Qualified Code(s): I10 - Essential (primary) hypertension Discussion w patient/family: The assessment and plan as outlined above was discussed with the patient and/or family members who expressed understanding and agreement. All questions were answered. Thank you for involving us in the care of your patient. Please call with any questions. History of Present Illness Consult date: 02/04/18 Requesting physician: Shilpi Hernandez See Consult reason: Bradycardia History of present illness: Ms. Corrales is a 82 year old female 82 year old pleasant female with history of hypertension, hypothyroidism, presented to the ER with dizziness and shortness of breath over the past week. There is associated feeling of fatigue. No fainting spell. No chest pain or palpitations. She reports blurry vision over the past 1-1/2 month. No recent change in her medications. She has no history of coronary artery disease. Past Med Surg Social Fam HX - Past Medical History Medical history: arthritis, hypertension, thyroid disease, TIA, other Additional medical history: hernia Psychiatric history: no psych history - Past Surgical History Surgical History: orthopedic, other, thyroidectomy, other Additional surgical history: Bladder suspention - Social History Smoking Status: Former smoker Smokeless Tobacco Status: No Alcohol use: none Drug use: none - Family History Father Hx Family GI Disorders: Yes Mother Hx Family Respiratory Disorders: Yes (Emphysema) Medications and Allergies Levothyroxine [Synthroid] 112 mcg PO DAILY 04/12/16 [History] Omeprazole [PriLOSEC] 20 mg PO DAILY 05/15/16 [History] Meloxicam 7.5 mg PO DAILY 02/04/18 [History] Allergy/AdvReac Type Severity Reaction Status Date / Time No Known Allergies Allergy Verified 02/04/18 14:53 All Systems Review: The remainder of the systems were reviewed and are negative - Constitutional Constitutional: no anorexia, no chills, no fever(s) - EENT Nose, mouth and throat: no bleeding gums - Cardiovascular Cardiovascular: no diaphoresis, no orthopnea, no palpitations, no syncope - Respiratory Respiratory: no cough, no wheezing - Gastrointestinal Gastrointestinal: no abdominal pain - Genitourinary Genitourinary: no dysuria - Musculoskeletal Musculoskeletal: no abnormal gait - Integumentary Integumentary: no erythema - Neurological Neurological: no abnormal speech, no focal weakness - Psychiatric Psychiatric: no anxiety - Hematological/Lymphatic Hematologic/Lymphatic: no easy bleeding Physical Examination Vital Signs, Last 4 Hours Temp Pulse Resp BP Pulse Ox 02/04/18 17:33 41 14 158/84 98 02/04/18 15:51 44 14 167/70 97 02/04/18 14:58 97.4 F L 38 24 170/87 98 02/04/18 14:52 97.4 F L 38 24 98 General: Conversant, No Apparent Distress HEENT: Atraumatic, Normocephaly Neck: No JVD Cardiac: Reg Rate and Rhythm, Normal S1 and S2 Lungs: Normal Breath Sounds, No Wheeze, Rales, Rhonchi Neuro: Alert and responsive Abdomen: Soft, Non-Tender Musculoskeletal: No Chest Wall Tenderness Extremities: No Edema Results 02/04/18 15:07 02/04/18 15:07 Lab Results 02/04/18 02/04/18 02/04/18 15:07 15:07 15:07 WBC 5.9 Hgb 13.6 Hct 41.2 Plt Count 194 INR 1.3 APTT 31.6 Sodium 139 Potassium 3.8 Chloride 105 Carbon Dioxide 20 L BUN 9 Creatinine 0.79 Glucose 115 H Calcium 9.1 Magnesium 2.1 Troponin I < 0.03 B-Natriuretic Peptide TSH 0.067 L 02/04/18 15:07 WBC Hgb Hct Plt Count INR APTT Sodium Potassium Chloride Carbon Dioxide BUN Creatinine Glucose Calcium Magnesium Troponin I B-Natriuretic Peptide 370 H TSH Consult Discharge Plan - Plan Referrals: Salome Sidhu DO [Primary Care Provider] -
--- NOTE | 2018-02-04 18:40 | Electrocardiograph Report ---
Test Date: 2018-02-04 Pat Name: Kerline Corrales Department: [id number] Room: [facility] Gender: F Space Controller: : [id number] Requested By: Shilpi See Order Number: [id number] Reading MD: Estevan Gilmore Measurements Intervals [place] Rate: 45 P: 29 ME: 242 QRS: 53 QRSD: 143 T: 62 QT: 538 QTc: 466 Interpretive Statements Sinus bradycardia Prolonged ME interval Right bundle branch block Electronically Signed On 02-04-2018 18:39:02 EST by Estevan Gilmore
[2018-02-04] MEDS: 0.9 % Sodium Chloride 1,000 ML IVC SCH (20:13)
[2018-02-05 03:41] LABS: Hematocrit 35.4 % (35.3-44.9); Hemoglobin 11.8 g/dL (11.5-15.4); Immature Platelets 4.5 % (1.1-6.1); Mean Corpuscular HGB Conc 33.3 g/dL (31.6-35.5); Mean Corpuscular Hemoglobin 30.7 pg (28.0-33.3); Mean Corpuscular Volume 92.2 fL (83.0-100.0); Mean Platelet Volume 11.5 fL (9.4-12.4); Red Blood Count 3.84 M/mcL (3.82-4.97); Red Cell Distribution Width 13.2 % (11.5-14.5)
[2018-02-05 04:00] LABS: Alanine Aminotransferase 24 Units/L (7-52); Albumin 3.3 g/dL (3.5-5.7); Albumin/Globulin Ratio 1.3 (1.1-2.2); Alkaline Phosphatase 48 Units/L (34-104); Aspartate Amino Transferase 22 Units/L (13-39); BUN/Creatinine Ratio 14 (6-26); Bilirubin,Total 0.8 mg/dL (0.3-1.0); Blood Urea Nitrogen 11 mg/dL (8-23); Calcium 8.4 mg/dL (8.6-10.3); Carbon Dioxide 26 mEq/L (23-29); Chloride 108 mEq/L (98-107); Cholesterol 152 mg/dL (< 200); Globulin 2.6 g/dL (2.4-3.5); Glucose 107 mg/dL (70-105); HDL Cholesterol 38 mg/dL (40-59); LDL Cholesterol,Calculated 98 mg/dL (0-99); Osmolality,Calculated 294 (280-300); Sodium 142 mEq/L (136-145); Total Protein 5.9 g/dL (6.4-8.9); Triglycerides 81 mg/dL (< 150); eGFR For Non-African Americans > 60 (> 60)
[2018-02-05] MEDS: 0.9 % Sodium Chloride 1,000 ML IVC SCH (08:31)
[2018-02-05] MEDS ORDERED: CeFAZolin Syr 2,000MG/20 ML 2,000 MG/20 ML SYRINGE IVPB ONE (10:14)
--- NOTE | 2018-02-05 10:14 | Event Note ---
<Rahul Rich - Last Filed: 02/05/18 10:11> Date of Encounter: 02/05/18 Time of Encounter: 10:11 - Cardiology Event Note EP consulted due to high degree AV block/bradycardia. Pt seen and examined--dyspnea, fatigue, dizziness/lightheadedness over the past 1-2 weeks. Checked BP at home yesterday and noticed HR in the 30s. Not on any AV mackenzie blockers at home. Denies any new OTC or prescription medications. K and Mag WNL. TSH 0.067 with normal Free T3 and Free T4. TTE obtained--LVEF 65-70%. Normal LV chamber size and systolic function. Mild cLVH. Mild LVDD. Normal right ventricular structure and function. Mild MR. Mild-moderate TR. Mild OH. No underlying reversible cause for bradycardia/AV block found. HR remains 30s at bedside. Discussed and reviewed with Dr. Heraclio Bowden. Will plan for PPM insertion today. R/B/A discussed. Pt agrees. <Heraclio Bowden - Last Filed: 02/05/18 13:56> Date of Encounter: 02/05/18 - Cardiology Event Note I have personally performed a face to face evaluation on this patient. I have reviewed and agree with the care plan. History and Exam by me shows: AV block with junctional escape. Agree with pacemaker.
--- NOTE | 2018-02-05 10:34 | Internal Med Progress Note ---
Hospitalist Progress Note - Encounter Date of Encounter: 02/05/18 Time of Encounter: 10:31 - Exam Vitals: Temp Pulse Resp BP Pulse Ox 97.6 F 37 20 146/72 93 02/05/18 07:20 02/05/18 09:00 02/05/18 09:00 02/05/18 09:00 02/05/18 09:00 Exam: Patient seen and examined by allergy evaluation noted patient is scheduled for permanent pacemaker placement today - Assessment and Plan (1) Hypothyroidism Current Visit: Yes Status: Acute Assessment and Plan: Free T4 and free T3 within normal limits (2) Bradycardia Current Visit: Yes Status: Acute Assessment and Plan: Symptomatic bradycardia and second-degree AV block type II patient is scheduled for permanent pacemaker placement today (3) Dyspnea on exertion Current Visit: Yes Status: Acute Assessment and Plan: Shortness of breath most likely secondary to bradycardia echo shows preserved LV function ejection fraction is about 70% troponin is negative (4) Heart block Current Visit: Yes Status: Acute Assessment and Plan: for PPM today - Time Spent with Patient Total time spent is greater than 50% in coordination of care (as documented) at patient's floor/unit and/or counseling patient: Internal Medicine: Result - Labs CBC & Chem 7: 02/05/18 03:22 02/05/18 03:22 Labs: Short CBC 02/04/18 02/05/18 Range/Units 15:07 03:22 WBC 5.9 6.1 (4.3-11.1) K/mcL Hgb 13.6 11.8 D (11.5-15.4) g/dL Hct 41.2 35.4 (35.3-44.9) % Plt Count 194 145 (140-400) K/mcL Neutrophils # 2.8 (1.6-8.9) K/mcL BMP 02/04/18 02/05/18 15:07 03:22 Sodium 139 142 Potassium 3.8 4.0 Chloride 105 108 H Carbon Dioxide 20 L 26 BUN 9 11 Creatinine 0.79 0.76 Glucose 115 H 107 H Calcium 9.1 8.4 L Cardiac Enzymes 02/04/18 02/04/18 02/05/18 Range/Units 15:07 21:29 03:22 Troponin I < 0.03 < 0.03 < 0.03 (< 0.04) ng/mL Liver Function 02/05/18 Range/Units 03:22 Total Bilirubin 0.8 (0.3-1.0) mg/dL AST 22 (13-39) Units/L ALT 24 (7-52) Units/L Alkaline Phosphatase 48 (34-104) Units/L Albumin 3.3 L (3.5-5.7) g/dL - ABG Interpretation ABG results: PT/INR, D-dimer PT 14.1 Seconds (9.4-12.1) H 02/04/18 15:07 - Impressions Impressions Chest X-Ray 02/04/18 15:16 IMPRESSION: 1. Cardiomegaly without overt failure. 2. Hiatal hernia. D/ / Ric Adrian MD / Ric Adrian MD Interpreting Provider: Ric Adrian MD Echocardiogram 02/05/18 17:14 Impressions: LVEF 65-70%. Normal LV chamber size and systolic function. Mild concentric left ventricular hypertrophy. Mild left ventricular diastolic dysfunction. Normal right ventricular structure and function. Mild mitral regurgitation. Mild-moderate tricuspid regurgitation. Mild pulmonic regurgitation. No pulmonary hypertension. Left Ventricular Wall Motion: Rest Echo Findings All wall segments showed normal motion. Findings: Study Quality * Technically adequate exam. ECG Findings * Sinus rhythm with 2:1 AVB. Left Ventricle * LVEF 65-70%. * Normal LV chamber size and systolic function. * Mild concentric left ventricular hypertrophy. * Mild left ventricular diastolic dysfunction. * Definity echo contrast was not used. Right Ventricle * Normal right ventricular structure and function. Left Atrium * Normal left atrial size. Right Atrium * Normal right atrial size. Interatrial Septum * Interatrial septum not well evaluated. Aortic Valve * Mildly calcified aortic valve leaflets. * No aortic regurgitation. * No aortic stenosis. Mitral Valve * Normal mitral valve structure. * No mitral stenosis. * Mild mitral regurgitation. Tricuspid Valve * Normal tricuspid valve structure. * No tricuspid stenosis. * Mild-moderate tricuspid regurgitation. * Estimated RVSP is 34 mmHg. * Estimated RA pressure is 10 mmHg. * No pulmonary hypertension. Pulmonic Valve * Pulmonic valve is not well visualized. * No pulmonic stenosis. * Mild pulmonic regurgitation. Aorta * Normally sized aortic root. Pericardium * The pericardium appears normal. IVC * Normal IVC dimensions and inspiratory collapse. Consult Discharge Plan - Plan Referrals: Salome Sidhu DO [Primary Care Provider] - (1) Hypothyroidism Qualifiers: Hypothyroidism type: unspecified Qualified Code(s): E03.9 - Hypothyroidism, unspecified
--- NOTE | 2018-02-05 12:22 | Pre-Sedation Evaluation ---
Pre-sedation evaluation - Pre-sedation checklist Date of procedure: 02/05/18 Procedure: Pacer Placement Recent Vitals: Last Vital Signs Temp 97.8 F 02/05/18 11:25 Pulse 37 02/05/18 11:00 Resp 16 02/05/18 11:00 BP 171/68 02/05/18 11:00 Pulse Ox 97 02/05/18 11:00 H&P (including ROS) documented in medical record: Yes Previous reaction to sedatives/anesthetics: No Dietary Status: NPO after Midnight Airway Assessment: Patient can open mouth completely, TMJ function normal, Micrognathia (under-bite, receding chin) absent Dentition: dentures removed Possible difficult airway: No ASA Classification *see protocol: CLASS II-Mild systemic disease Plan of Care: Pt appropriate candidate for procedure/moderate/conscious sedation, Risks/benefits of procedure/sedation discussed w/ patient/family
[2018-02-05] MEDS ORDERED: 0.9 % Sodium Chloride 500 ML ONE (12:26)
[2018-02-05] MEDS ORDERED: *HR* Midazolam HCl 2 MG/2 ML VIAL ONE (12:26)
[2018-02-05] MEDS ORDERED: *HR* FentaNYL (PF) 100 MCG/2 ML VIAL ONE (12:26)
[2018-02-05] MEDS ORDERED: *HR* OxyCODONE Immed Rel 5 MG TABLET PO PRN (13:19)
[2018-02-05] MEDS ORDERED: Acetaminophen 325 MG TABLET PO PRN (13:19)
--- NOTE | 2018-02-06 08:54 | Internal Med Progress Note ---
Hospitalist Progress Note - Encounter Date of Encounter: 02/06/18 Time of Encounter: 08:52 - Subjective Interval History: Patient is seen and examined underwent permanent pacemaker placement rhythm is atrial septal ventricular paced sensing and capturing properly - Exam Vitals: Temp Pulse Resp BP Pulse Ox 97.8 F 72 20 143/93 95 02/06/18 07:12 02/06/18 08:12 02/06/18 08:08 02/06/18 07:12 02/06/18 08:08 Exam: Patient seen and examined by allergy evaluation noted patient is scheduled for permanent pacemaker placement today - Assessment and Plan (1) Hypothyroidism Current Visit: Yes Status: Acute Assessment and Plan: Free T4 and free T3 normal (2) Bradycardia Current Visit: Yes Status: Acute Assessment and Plan: Patient underwent permanent pacemaker appeared to be sensing and capturing properly awaiting cardiology follow-up evaluation patient probably can be discharged echo shows normal LV function and wall motion (3) Dyspnea on exertion Current Visit: Yes Status: Acute Assessment and Plan: Likely related to bradycardia patient clinically is not heart failure (4) Heart block Current Visit: Yes Status: Acute - Time Spent with Patient Total time spent is greater than 50% in coordination of care (as documented) at patient's floor/unit and/or counseling patient: Internal Medicine: Result - Labs CBC & Chem 7: 02/05/18 03:22 02/05/18 03:22 Labs: Cardiac Enzymes 02/05/18 Range/Units 10:16 Troponin I < 0.03 (< 0.04) ng/mL - ABG Interpretation ABG results: PT/INR, D-dimer PT 14.1 Seconds (9.4-12.1) H 02/04/18 15:07 - Impressions Impressions Chest X-Ray 02/05/18 13:19 IMPRESSION: No acute process. Transvenous pacer in place without evidence for pneumothorax. Hiatal hernia again noted. D/ / Khurram Cornelius MD / Khurram Cornelius MD Interpreting Provider: Khurram Cornelius MD Echocardiogram 02/05/18 17:14 Impressions: LVEF 65-70%. Normal LV chamber size and systolic function. Mild concentric left ventricular hypertrophy. Mild left ventricular diastolic dysfunction. Normal right ventricular structure and function. Mild mitral regurgitation. Mild-moderate tricuspid regurgitation. Mild pulmonic regurgitation. No pulmonary hypertension. Left Ventricular Wall Motion: Rest Echo Findings All wall segments showed normal motion. Findings: Study Quality * Technically adequate exam. ECG Findings * Sinus rhythm with 2:1 AVB. Left Ventricle * LVEF 65-70%. * Normal LV chamber size and systolic function. * Mild concentric left ventricular hypertrophy. * Mild left ventricular diastolic dysfunction. * Definity echo contrast was not used. Right Ventricle * Normal right ventricular structure and function. Left Atrium * Normal left atrial size. Right Atrium * Normal right atrial size. Interatrial Septum * Interatrial septum not well evaluated. Aortic Valve * Mildly calcified aortic valve leaflets. * No aortic regurgitation. * No aortic stenosis. Mitral Valve * Normal mitral valve structure. * No mitral stenosis. * Mild mitral regurgitation. Tricuspid Valve * Normal tricuspid valve structure. * No tricuspid stenosis. * Mild-moderate tricuspid regurgitation. * Estimated RVSP is 34 mmHg. * Estimated RA pressure is 10 mmHg. * No pulmonary hypertension. Pulmonic Valve * Pulmonic valve is not well visualized. * No pulmonic stenosis. * Mild pulmonic regurgitation. Aorta * Normally sized aortic root. Pericardium * The pericardium appears normal. IVC * Normal IVC dimensions and inspiratory collapse. Consult Discharge Plan - Plan Referrals: Salome Sidhu DO [Primary Care Provider] - _ (1) Hypothyroidism Qualifiers: Hypothyroidism type: unspecified Qualified Code(s): E03.9 - Hypothyroidism, unspecified
[2018-02-06 11:16] VITALS: BP 107/75
--- NOTE | 2018-02-06 11:30 | Electrophysiology ProgressNote ---
Date of Encounter: 02/06/18 Time of Encounter: 11:27 Assessment and Plan (1) S/P cardiac pacemaker procedure Current Visit: Yes Status: Acute S/P PPM yesterday for high grade AV block and symptomatic bradycardia. Left chest device site healing well. No bleeding or hematoma. Restrictions discussed. CXR no pneumothorax, but does show mild vascular congestion. BNP mildly elevated on admission 370. Will give one time dose of IV Lasix 20mg. Device check okay. Will coordinate outpt follow-up in 7-10 days for wound check, 4-6 weeks device check and in [address] Heraclio Bowden. Cardiology/EP signing off. Reconsult PRN. (2) High-grade atrioventricular block Current Visit: Yes Status: Acute Presented with dyspnea, fatigue, dizziness/lightheadedness over the past 1-2 weeks. Checked BP at home and noticed HR in the 30s. Not on any AV mackenzie blockers at home. Denies any new OTC or prescription medications. K and Mag WNL. TSH 0.067 with normal Free T3 and Free T4. TTE obtained--LVEF 65-70%. Normal LV chamber size and systolic function. Mild cLVH. Mild LVDD. Normal right ventricular structure and function. Mild MR. Mild-moderate TR. Mild IN. No underlying reversible cause for bradycardia/AV block found. S/P PPM insertion yesterday as above. (3) Bradycardia Current Visit: Yes Status: Acute Discussion w patient/family: The assessment and plan as outlined above was discussed with the patient and/or family members who expressed understanding and agreement. All questions were answered. Thank you for involving us in the care of your patient. Please call with any questions. I will discuss all the above with Dr. Heraclio Bowden and make changes necessary. Subjective Principal diagnosis: AV block, PPM Interval history: S/P PPM yesterday for high degree AV block/symptomatic bradycardia. No acute complaints this AM. Reports dyspnea and fatigue are improved. Denies dizziness/lightheadedness. Objective Vital Signs, Last 4 Hours Temp Pulse Resp BP Pulse Ox 02/06/18 11:14 98.2 F 71 16 107/75 95 02/06/18 10:16 64 16 94 02/06/18 08:12 72 02/06/18 08:08 72 20 95 Vital Signs Temp Pulse Resp BP Pulse Ox 02/06/18 11:25 70 11/15/18 11:14 98.2 F 71 16 107/75 95 02/06/18 10:16 64 16 94 02/06/18 08:12 72 02/06/18 08:08 72 20 95 02/06/18 07:12 97.8 F 69 19 143/93 95 02/06/18 05:00 70 02/06/18 03:59 97.8 F 75 18 168/86 95 02/06/18 00:10 67 02/06/18 00:09 97.9 F 80 18 156/74 96 02/05/18 20:00 98.0 F 74 20 160/84 96 02/05/18 17:56 97.6 F 92 20 134/68 98 02/05/18 17:00 80 18 158/97 97 02/05/18 16:00 77 20 154/76 98 02/05/18 15:00 76 16 152/87 100 02/05/18 14:00 68 16 178/87 96 Intake and Output 02/05/18 02/06/18 02/06/18 23:59 07:59 15:59 Intake Total 100 / 100 1100 / 1100 240 / 240 Output Total 950 / 950 300 / 300 Balance 100 / 100 150 / 150 -60 / -60 Intake: IV Fluids 100 / 100 1100 / 1100 0.9 % Sodium Chloride 1,000 ML 1000 / 1000 @ 75 mls/hr IVC .[id number] [facility] Rx #:[id number] Ancef 2,000 MG In 0.9 % Sodium 100 / 100 100 / 100 Chloride 100 ML @ 200 mls/hr IVPB Q8H [facility] Rx#:[id number] Oral 240 / 240 Output: Urine 950 / 950 300 / 300 Other: Meal Breakfast Percent of Meal Consumed 90% # Voids 1 Weight 101.2 kg Patient Weight 02/06/18 23:59 Weight 101.2 kg General: Conversant, No Apparent Distress HEENT: Atraumatic, Normocephaly, Mucus Membranes Moist Neck: No JVD, Normal carotid pulses Cardiac: Reg Rate and Rhythm, Normal S1 and S2, No Murmur Lungs: Normal Breath Sounds, No Wheeze, Rales, Rhonchi Neuro: Alert and responsive, No focal deficits noted Abdomen: Soft, Non-Tender Skin: Other (left chest device site healing well. Steri strips intact, no bleeding or hematoma.) Musculoskeletal: No Chest Wall Tenderness Extremities: No Clubbing, No Cyanosis, No Edema, Normal Pulses Results 02/05/18 03:22 02/05/18 03:22 Impressions Chest X-Ray 02/05/18 13:19 IMPRESSION: No acute process. Transvenous pacer in place without evidence for pneumothorax. Hiatal hernia again noted. D/ / Khurram Cornelius MD / Khurram Cornelius MD Interpreting Provider: Khurram Cornelius MD Chest X-Ray 02/06/18 06:00 IMPRESSION: 1. Mild pulmonary vascular congestion and bibasilar atelectasis. 2. Moderate size hiatal hernia. D/ / Latonya Issa MD / Latonya Issa MD Interpreting Provider: Latonya Issa MD Active Medications Acetaminophen (Tylenol) 650 mg PO Q4HR PRN PRN Reason: Mild Pain Stop: 08/07/18 13:20 Last Admin: 02/05/18 20:14 Dose: 650 mg Levothyroxine Sodium (Synthroid) 112 mcg PO 0630 [facility] Stop: 08/07/18 06:31 Last Admin: 02/06/18 06:32 Dose: 112 mcg Meloxicam (Mobic) 7.5 mg PO DAILY [facility] Stop: 08/07/18 09:01 Last Admin: 02/06/18 08:04 Dose: 7.5 mg Naloxone HCl (Narcan) 0.4 mg IVP Q2MIN PRN PRN Reason: SEE COMMENTS Stop: 08/06/18 17:12 Omeprazole (Prilosec) 20 mg PO 0730 [facility]; Protocol Stop: 08/07/18 07:31 Last Admin: 02/06/18 06:33 Dose: 20 mg Oxycodone HCl (Roxicodone) 5 mg PO Q4HR PRN; Protocol PRN Reason: Severe Pain Stop: 08/07/18 13:20 Last Admin: 02/06/18 08:05 Dose: 5 mg - Imaging and Cardiology Chest Xray: report reviewed Echo: report reviewed - EKG Interpretation EKG results cardiology: other (12 hr tele AVG HR 71, paced) Consult Discharge Plan - Plan Additional Instructions: ACTIVITY: Moderate activity for the next 7 days. No lifting more than 5 pounds (gallon of milk) for 4-6 weeks. Avoid lifting your arm on the same side as the device for 4 weeks. BATHING /SHOWERING: Do not remove the large bandage over the site for 2 days. Do not allow the device to get wet for 7-10 days. You may bathe/shower, but do not use soap and water on the site. When bathing, keep the site dry by covering with Saran wrap or a towel. WOUND CARE: The white steri-strips will start to peel away and come off after 14 days, or your doctor will remove them after [address] anything into or on top of the incision. Do not use cotton swabs. Do not use any antibiotic ointment or Vitamin E on the site. REMINDERS: You may use electrical devices, such as, microwaves, hair dryers, electric razors, electric blankets, etc. as long as they are in good condition and kept 6-8 inches away from the device. It is recommended to use cell phones on the opposite side of your device. Notify security personnel at the airport that you have a device before you go through airport security screening. When at places with security monitors, such as a grocery store, do not linger near these monitors. It is fine to walk past them in a normal manner. Refer to your owners manual for more specific directions. CARRY YOUR PACEMAKER/ICD CARD WITH YOU AT ALL TIMES Return to work as instructed per physician Resume driving as instructed per physician Keep all scheduled follow up appointments Resume medications as instructed Contact [facility] ( ) if: You develop excessive bleeding from insertion or wound site not controlled by applying pressure You develop a fever greater than 101 degrees Fahrenheit Your incision becomes reddened at or around the site Your incision develops yellowish or greenish drainage or development of white pimple-like bumps You experience excessive pain You develop swelling in your ankles You experience muscle switching You develop excessive hiccupping If you experience chest pain, shortness of breath, dizziness, or extreme tiredness, stop the activity and rest. Please notify [facility] office if you experience any of these symptoms and they are not relieved by rest please call 911! Referrals: wound,check [Other] (Office will call for the 1 week wound check) three to, four month [Other] (Office will call with an appointment for a 3-4 month pacer check) Salome Sidhu, [Primary Care Provider] - 02/11/18 1:30 pm Heraclio Bowden MD [Partnered Physician] - (office will call patient at home with 1 week wound check, 3-4 month follow up and a 6 month follow up)
[2018-02-06] MEDS ORDERED: Furosemide 20 MG/2 ML VIAL IVP ONE (11:52)
--- NOTE | 2018-02-06 12:56 | Discharge Summary ---
Date of Encounter: 02/06/18 Time of Encounter: 12:52 - Discharge Diagnosis (1) Hypothyroidism Priority: Secondary Status: Acute Qualifiers: Hypothyroidism type: unspecified Qualified Code(s): E03.9 - Hypothyroidism, unspecified (2) Bradycardia Priority: Secondary Status: Acute (3) Dyspnea on exertion Priority: Secondary Status: Acute (4) Heart block Priority: Primary Status: Acute Hospital course: Ms. Corrales is a 82 year old female Patient with history of arthritis, GERD, obesity was admitted with symptomatic bradycardia was seen by cardiology and underwent paermanent pacemaker implantation yesterday had an echocardiogram done which showed normal LV function pacemaker has been checked functioning properly chest x-ray no complication no pneumothorax patient is stable to be discharged and follow-up with cardiology for pacemaker follow-up in 10 days. - Time Spent with Patient Total time spent providing and/or coordinating discharge services: - Discharge Medications Home Medications: Levothyroxine [Synthroid] 112 mcg PO DAILY 04/12/16 [History] Omeprazole [PriLOSEC] 20 mg PO DAILY 05/15/16 [History] Meloxicam 7.5 mg PO DAILY 02/04/18 [History] Allergies/Adverse Reactions: Allergy/AdvReac Type Severity Reaction Status Date / Time No Known Allergies Allergy Verified 02/04/18 14:53 Date of admission: 02/04/18 16:46 Primary care physician: Markel Amor Consults: 02/04/18 16:17 Consult to Cardiology [CONS] Stat Comment: Consulting Provider: Cardiology Yen Reason for Consult: Symptomatic bradycardia, heart block Call Completed: Yes 02/06/18 12:01 Consult to Electrophysiology (EP) [CONS] Routine Consulting Provider: Electrophysiology Yen Reason for Consult: av block Call Completed: Yes Discharging clinician: Deirdre Lima Anticipated date of discharge: 02/06/18 - Constitutional Vitals: Temp Pulse Resp BP Pulse Ox 98.2 F 70 16 107/75 95 02/06/18 11:14 02/06/18 11:25 02/06/18 11:14 02/06/18 11:14 02/06/18 11:14 Exam: Patient seen and examined by allergy evaluation noted patient is scheduled for permanent pacemaker placement today - Patient Status Disposition: Home, Self-Care Condition: Good Functional capacity at discharge: independent ambulation Overall status at discharge: patient is progressing back to baseline - Discharge Instructions Follow Up With: wound,check [Other] (Office will call for the 1 week wound check) three to, four month [Other] (Office will call with an appointment for a 3-4 month pacer check) Salome Sidhu DO [Primary Care Provider] - 02/11/18 1:30 pm Heraclio Bowden MD [Partnered Physician] - (office will call patient at home with 1 week wound check, 3-4 month follow up and a 6 month follow up) Additional Instructions: ACTIVITY: Moderate activity for the next 7 days. No lifting more than 5 pounds (gallon of milk) for 4-6 weeks. Avoid lifting your arm on the same side as the device for 4 weeks. BATHING /SHOWERING: Do not remove the large bandage over the site for 2 days. Do not allow the device to get wet for 7-10 days. You may bathe/shower, but do not use soap and water on the site. When bathing, keep the site dry by covering with Saran wrap or a towel. WOUND CARE: The white steri-strips will start to peel away and come off after 14 days, or your doctor will remove them after [address] anything into or on top of the incision. Do not use cotton swabs. Do not use any antibiotic ointment or Vitamin E on the site. REMINDERS: You may use electrical devices, such as, microwaves, hair dryers, electric razors, electric blankets, etc. as long as they are in good condition and kept 6-8 inches away from the device. It is recommended to use cell phones on the opposite side of your device. Notify security personnel at the airport that you have a device before you go through airport security screening. When at places with security monitors, such as a grocery store, do not linger near these monitors. It is fine to walk past them in a normal manner. Refer to your owners manual for more specific directions. CARRY YOUR PACEMAKER/ICD CARD WITH YOU AT ALL TIMES Return to work as instructed per physician Resume driving as instructed per physician Keep all scheduled follow up appointments Resume medications as instructed Contact [facility] ( ) if: You develop excessive bleeding from insertion or wound site not controlled by applying pressure You develop a fever greater than 101 degrees Fahrenheit Your incision becomes reddened at or around the site Your incision develops yellowish or greenish drainage or development of white pimple-like bumps You experience excessive pain You develop swelling in your ankles You experience muscle switching You develop excessive hiccupping If you experience chest pain, shortness of breath, dizziness, or extreme tiredness, stop the activity and rest. Please notify [facility] office if you experience any of these symptoms and they are not relieved by rest please call 911! - Diet and Activity Activity: other Diet: advance to your usual diet
--- NOTE | 2018-02-08 22:28 | Electrocardiograph Report ---
[address] [address] Test Date: 2018-02-04 Pat Name: Kerline Corrales Department: 112 Room: 2N12 Gender: F Brake Operator Sheet Metal: NKECHI : [id number] Requested By: Estevan Gilmore Order Number: [id number] Reading MD: Kerri Hernadez Measurements Intervals [place] Rate: 38 P: [place]: 0 QRS: 29 QRSD: 131 T: 39 QT: 550 QTc: 469 Interpretive Statements SINUS RHYTHM WITH HIGH GRADE AVB, ALTERNATING 2:1 AND 3:1 CONDUCTION RIGHT BUNDLE BRANCH BLOCK Electronically Signed On 02-08-2018 22:26:16 EST by Kerri Hernadez
== END 2018-02-06 14:43 | disposition home or self-care (01) | DRG 244 ==
LOC: EMEROOARM 14:46 → ICNU 16:46 → 2NNU 02-05 17:54
PROVIDERS: ADMIT Internal Medicine; ATTEND Internal Medicine